=== PATIENT | male | born 1975 | race Two or more races ===

== ENCOUNTER 2018-07-29 17:45 | Emergency (ER) | payer OTHER ==
[~2018-07-29] VITALS: Ht 157.5 cm; Wt 68.0 kg
[2018-07-29 18:00] VITALS: BP 164/93
--- NOTE | 2018-07-29 18:58 | PHYS DOC ---
Past Medical History Past Medical History: No Pertinent History Past Surgical History: No Surgical History Alcohol Use: None Drug Use: None Adult General Chief Complaint Chief Complaint: LACERATION/AVULSION HPI HPI Patient is a 42 year old male who presents with laceration. Patient states he was carrying plates at work yesterday when he slept and fell. The plates broke and cut his right elbow and left forearm. Patient states he did remove some glass from the lacerations. He denies any numbness or tingling in either of his hands. He denies any weakness in either hands. He is currently having a throbbing pain in his right elbow that does not radiate. He took some ibuprofen at home with little relief. Patient is unsure of his last tetanus shot. Review of Systems Review of Systems Constitutional: Denies fever or chills Eyes: Denies change in visual acuity, redness, or eye pain HENT: Denies nasal congestion or sore throat Respiratory: Denies cough or shortness of breath Cardiovascular: Denies chest pain or palpitations GI: Denies abdominal pain, nausea, vomiting : Denies dysuria or hematuria Musculoskeletal: Denies back pain or joint pain Integument: Two 3 cm linear lacerations to the right elbow, 1.5 cm laceration to left wrist, no rash Neurologic: Denies headache, focal weakness or sensory changes Complete systems were reviewed and found to be within normal limits, except as documented in this note. Current Medications Current Medications Current Medications Medications (Trade) Dose Ordered Sig/Negro Start Time Stop Time Status Last Admin Dose Admin Diphtheria/ Tetanus/Acell Pertussis (Boostrix) 0.5 ml ONCE ONCE 07/29/18 19:00 07/29/18 19:01 DC 07/29/18 19:00 0.5 ML Ibuprofen (Motrin) 400 mg 1X ONCE 07/29/18 19:00 07/29/18 19:01 DC 07/29/18 18:59 400 MG Lidocaine/ Epinephrine (LIDOCAINE 2%-EPI 1:100,000 multi-dose) 20 ml 1X ONCE 07/29/18 19:00 07/29/18 19:01 DC 07/29/18 19:45 20 ML Neomycin/ Polymyxin/ Bacitracin (Triple Antibiotic Ointment) 1 pkt 1X ONCE 07/29/18 19:00 07/29/18 19:01 DC 07/29/18 19:00 1 PKT Allergies Allergies Allergies Coded Allergies Type Severity Reaction Last Updated Verified No Known Drug Allergies 07/29/18 No Physical Exam Physical Exam Constitutional: Well developed, well nourished HENT: Normocephalic, atraumatic Eyes: EOMI, conjunctiva normal, no discharge. Neck: Normal range of motion, supple. Cardiovascular:Heart rate regular rhythm, no murmur Lungs & Thorax: Bilateral breath sounds clear to auscultation Abdomen: Bowel sounds normal, soft, no tenderness. Skin: Two 2 cm lacerations to right elbow, 1.5 cm laceration to left wrist, no erythema, no rash. Back: No tenderness, no CVA tenderness. Extremities: No tenderness, ROM intact, no edema. Neurologic: Alert and oriented X 3, normal motor function, normal sensory function, no focal deficits noted, normal sensation for right and left hands. Psychologic: Affect normal, judgement normal, mood normal. Current Patient Data Vital Signs Vital Signs Date Time Temp Pulse Resp B/P (MAP) Pulse Ox O2 Delivery O2 Flow Rate FiO2 07/29/18 18:00 97.7 67 18 164/93 (116) 100 Room Air 97.7 EKG EKG [] Radiology/Procedures Radiology/Procedures Right elbow x-ray: Preliminary read by ER doctor demonstrated no foreign body Left wrist x-ray: Preliminary read by ER doctor demonstrated no foreign body Course & Med Decision Making Course & Med Decision Making Feel emergency department for laceration repair. 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 Three cuts on his right elbow and one cut on his left wrist. X-ray of right elbow and left foot showed no foreign body. Symptomatic treatment provided with interval improvement. Tetanus updated. Wounds cleaned and closed. [] Dragon Disclaimer Dragon Disclaimer This electronic medical record was generated, in whole or in part, using a voice recognition dictation system. Departure Departure Impression: Primary Impression: Laceration of arm Disposition: 01 HOME, SELF-CARE Condition: STABLE Patient Instructions: Laceration Care, Adult, [id number] Additional Instructions: Do not soak your wound. You may shower. Clean wound daily with soap and water. Change dressing 2 times daily. Use over the counter antibiotic ointment with each dressing change. Sutures need to be removed in 7-10 days. Present to your family doctor or local urgent care for removal. You may also present to the ED but it will be an additional visit/charge. After suture removal you may use Vitamin E ointment to soften the wound and prevent scarring. Laceration/Wound Repair Laceration/Wound Repair : Wound Location: upper extremity (right elbow and left wrist) Wound's Depth, Shape: superficial Wound Length (cm): 8 Wound Explored: clean Irrigated w/ Saline (ccs): 100 Anesthesia: Lidocaine w/ Epi Volume Anesthetic (ccs): 6 Wound Debrided: minimal Wound Repaired With: sutures Suture Size/Type: 4:0 Number of Sutures: 14 Layer Closure?: No Problem Qualifiers Primary Impression: Laceration of arm Encounter type: initial encounter Laterality: unspecified laterality Qualified Codes: S41.119A - Laceration without foreign body of unspecified upper arm, initial encounter JHOANA AYALA DO Jul 29, 2018 18:58
[2018-07-29] MEDS ORDERED: DIPHTH,PERTUSS(ACELL),TET TOX 0.5 ML DISP.SYRIN. VAX IM ONE (19:00)
[2018-07-29] MEDS ORDERED: IBUPROFEN 400 MG TABLET. PO ONE (19:00)
[2018-07-29] MEDS ORDERED: LIDOCAINE 2%/EPI 1:100,000 20 ML VIAL. IJ ONE (19:00)
[2018-07-29] MEDS ORDERED: NEOMY/BACITR/POLYMYXIN OINT PACKET. TP ONE (19:00)
--- NOTE | 2018-07-30 04:20 | RAD ---
Indication: Laceration. TECHNIQUE: 3 views of the left wrist COMPARISON: None Findings/ impression: No acute fracture or dislocation. No radiopaque foreign body. Electronically signed by: Ata Peñaloza DO (07/30/2018 4:17 AM) [facility]
--- NOTE | 2018-07-30 04:21 | RAD ---
Indication:LACERATION TECHNIQUE: 3 views of right elbow COMPARISON: None FINDINGS/ impression: No acute fracture or dislocation. No joint effusion. Electronically signed by: Ata Peñaloza DO (07/30/2018 4:18 AM) [facility]
== END 2018-07-29 20:24 | disposition home or self-care (01) ==
LOC: ER 17:45
DX: S51.011A Laceration without foreign body of right elbow, initial encounter (principal); S61.512A Laceration without foreign body of left wrist, initial encounter; S51.812A Laceration without foreign body of left forearm, initial encounter; W26.8XXA Contact with other sharp object(s), not elsewhere classified, initial encounter; Y93.89 Activity, other specified; Y92.89 Other specified places as the place of occurrence of the external cause; Y99.0 Civilian activity done for income or pay
CPT/HCPCS: 12004; 73080; 73110; 90471; 90715; 99284; J3490

== ENCOUNTER 2018-08-04 14:12 | Emergency (ER) | payer OTHER ==
[~2018-08-04] VITALS: Ht 167.6 cm; Wt 68.0 kg
[2018-08-04 14:41] VITALS: BP 140/75
--- NOTE | 2018-08-04 14:43 | PHYS DOC ---
Past Medical History Past Medical History: No Pertinent History Past Surgical History: No Surgical History Alcohol Use: None Drug Use: None Adult General Chief Complaint Chief Complaint: SUTURE/STAPLE REMOVAL HPI HPI 42-year-old male turns to the emergency department for suture removal and wound reevaluation. Patient was seen in the ER on 07/29 after accidental lacerations to right forearm and wrist. Patient had 14 sutures placed during that ER visit to 2 different lac sites. Patient denies any symptoms stating wounds have been healing well. Patient denies fever, infectious drainage, or bleeding from sites. Review of Systems Review of Systems Constitutional: Denies fever Musculoskeletal: Denies joint pain [] Integument: Denies redness/swelling. Reports well healing laceration to rt forearm/inner elbow area Neurologic: Denies focal weakness or sensory changes [] All other systems were reviewed and found to be within normal limits, except as documented in this note. Allergies Allergies Allergies Coded Allergies Type Severity Reaction Last Updated Verified No Known Drug Allergies 07/29/18 No Physical Exam Physical Exam Constitutional: Well developed, well nourished, no acute distress, non-toxic appearance. [] HENT: Normocephalic, atraumatic, oropharynx moist, nose normal. Eyes: Pupils equal, conjunctiva normal, no discharge. [] Neck: Normal range of motion, no tenderness, supple, no stridor. [] Cardiovascular: Heart rate regular Lungs & Thorax: Resp. equal/nonlabored Skin: Warm, dry Extremities: No tenderness, no cyanosis, no clubbing, ROM intact, no edema. 2+ radial rt upper extrem. Pt has 2 well healing lacerations to rt posterior proximal forearm and AC area- no erythema/swelling or purulent drainage Neurologic: Alert and oriented X 3, normal motor function, normal sensory function, no focal deficits noted. [] Psychologic: Affect normal, judgement normal, mood normal. [] Current Patient Data Vital Signs Vital Signs Date Time Temp Pulse Resp B/P (MAP) Pulse Ox O2 Delivery O2 Flow Rate FiO2 08/04/18 14:41 98.1 70 16 140/75 (96) 99 Room Air 98.1 EKG EKG [] Radiology/Procedures Radiology/Procedures [] Course & Med Decision Making Course & Med Decision Making Patient return to the ER for suture removal as he had had sutures placed on 07/29/18 in this ER. Patient has 2 lacerations to proximal rt posterior forearm and AC area with no erythema, swelling, or infectious appearance. Sutures were removed and patient remained PMS intact in right upper extremity. Patient was denying any pain. Education provided on continued wound care at home as well as monitoring for signs of infection. Patient to follow-up with primary care physician with any concerns. Discharge instructions were discussed with education on signs and symptoms to return to ER for. Dragon Disclaimer Dragon Disclaimer This electronic medical record was generated, in whole or in part, using a voice recognition dictation system. Departure Departure Impression: Primary Impression: Visit for suture removal Disposition: HOME, SELF-CARE Condition: STABLE Referrals: NO PCP (PCP) Patient Instructions: Suture Removal, Wound Care, [id number] Additional Instructions: Continue monitoring laceration sites for signs of infection. You can still apply a thin layer of triple antibiotic ointment to wound sites. With concerns follow-up with your primary care physician for wound reevaluation. GONZÁLEZ BRADFORD [employer] August 04, 2018 14:43
== END 2018-08-04 15:01 | disposition home or self-care (01) ==
LOC: ER 14:12
DX: S51.811D Laceration without foreign body of right forearm, subsequent encounter (principal); S61.511D Laceration without foreign body of right wrist, subsequent encounter; X58.XXXD Exposure to other specified factors, subsequent encounter
CPT/HCPCS: 99281